=== PATIENT | female | born 1970 | race Native Hawaiian/Other Pacific Islander ===

== ENCOUNTER 2019-08-25 08:37 | Outpatient (CLI) | payer BC ==
[2019-08-25 10:01] LABS: PLATELET COUNT 247 K/uL (152-353)
[2019-08-25 10:10] LABS: POTASSIUM 3.7 mmol/L (3.6-5.2)
== END 2019-08-25 21:27 | disposition home or self-care (01) ==
LOC: LABW 08:37
PROVIDERS: Family Medicine
DX: R05 Cough (principal); J34.89 Other specified disorders of nose and nasal sinuses; R51 Headache; R50.9 Fever, unspecified
CPT/HCPCS: 36415; 80053; 85027; 87635; G2023; U0002

== ENCOUNTER 2019-10-17 10:46 | Outpatient (CLI) | payer BC | END 2019-10-17 21:30 | disposition home or self-care (01) | LOC: LABW 10:46 | DX: R11.10 Vomiting, unspecified (principal); R19.7 Diarrhea, unspecified | CPT/HCPCS: 83630; 87015; 87045; 87324; 87328; 87329; 87449; 87899 ==